=== PATIENT | female | born 1995 | race Caucasian/White ===

== ENCOUNTER 2017-09-07 06:51 | Emergency (ER) | END 2017-09-07 08:55 | disposition home or self-care (01) ==

== ENCOUNTER 2019-02-11 12:20 | Emergency (ER) | payer BC, MEDICAID ==
[~2019-02-11] VITALS: Ht 165.1 cm; Wt 105.0 kg
[~2019-02-11 12:20] MED LIST: ACET325T33 PO; IBUP800T48 PO
[2019-02-11 12:31] VITALS: BP 136/81; PULSE 86; RESP 19; Ht 165.1 cm; Wt 105.0 kg
[2019-02-11] MEDS ORDERED: NAPR-985 PO (12:59)
--- NOTE | 2019-02-11 13:07 | ERD ---
ER Documentation Chief Complaint Chief Complaint THROAT PAIN HPI 23-year-old female presenting with a sore throat. Patient was brushing her teeth earlier today and noted some white stuff on her left tonsil. She denies any fevers and took Tylenol yesterday. No runny nose or cough. Denies medical problems. NKDA. Surgical history denies. Social history denies ROS All systems reviewed and are negative except as per history of present illness. Medications Home Meds Active Scripts Naproxen* (Naprosyn*) 500 Mg Tablet, 500 MG PO BID PRN for PAIN AND/OR INFLAMMATION, #30 TAB Prov:HUMZA GUTIERREZ PA-C 02/11/19 Ibuprofen* (Motrin*) 800 Mg Tab, 800 MG PO Q6, #30 TAB Prov:HUMZA GUTIERREZ PA-C 09/07/17 Acetaminophen* (Tylenol*) 325 Mg Tablet, 2 TAB PO Q6 PRN for PAIN AND OR ELEVATED TEMP, #20 TAB Prov:HUMZA GUTIERREZ PA-C 09/07/17 Allergies Allergies: Coded Allergies: No Known Allergy (Unverified , 09/07/17) PMhx/Soc Medical and Surgical Hx: pt denies Medical Hx, pt denies Surgical Hx Hx Alcohol Use: No Hx Substance Use: No Hx Tobacco Use: No Smoking Status: Never smoker FmHx Family History: No diabetes, No coronary disease, No other Physical Exam Vitals Vital Signs Date Temp Pulse Resp B/P (MAP) Pulse Ox O2 O2 Flow FiO2 Time Delivery Rate 02/11/19 99.9 86 19 136/81 97 12:31 (99) Physical Exam GENERAL: The patient is well-appearing, well-nourished, in no acute distress HEENT: Atraumatic. Conjunctivae are pink. Pupils equal, round, and reactive to light. There is no scleral icterus. Tympanic membranes clear bilaterally. Oropharynx positive for to tonsils on the left tonsil. No exudate NECK: C-spine is soft and supple. There is no meningismus. There is no cervical lymphadenopathy. CHEST: Clear to auscultation bilaterally. There are no rales, wheezes or rhonchi. HEART: Regular rate and rhythm. No murmurs, clicks, rubs or gallops. Procedures/MDM MDM: 23-year-old female presenting with findings consistent with tonsillitis. I have low suspicion for retropharyngeal abscess. Patient does not have findings consistent with strep throat. Patient is discharged with strict ER precautions and told to follow-up with primary care within 1 to 2 days for close evaluation. Patient is told symptoms change or worsen to return immediately to the ER. All questions answered at discharge Departure Diagnosis: Primary Impression: Tonsil stone Condition: Stable Patient Instructions: Self-Care for Sore Throats Referrals: [facility] YOU HAVE RECEIVED A MEDICAL SCREENING EXAM AND THE RESULTS INDICATE THAT YOU DO NOT HAVE A CONDITION THAT REQUIRES URGENT TREATMENT IN THE EMERGENCY DEPARTMENT. FURTHER EVALUATION AND TREATMENT OF YOUR CONDITION CAN WAIT UNTIL YOU ARE SEEN IN YOUR DOCTORS OFFICE WITHIN THE NEXT 1-2 DAYS. IT IS YOUR RESPONSIBILITY TO MAKE AN APPOINTMENT FOR FOLOW-UP CARE. IF YOU HAVE A PRIMARY DOCTOR --you should call your primary doctor and schedule an appointment IF YOU DO NOT HAVE A PRIMARY DOCTOR YOU CAN CALL OUR PHYSICIAN REFERRAL HOTLINE AT IF YOU CAN NOT AFFORD TO SEE A PHYSICIAN YOU CAN CHOSE FROM THE FOLLOWING [facility] [id number] [facility] [address] [facility]. [facility] [address] [facility] [facility] [address] [facility] [facility] [address] [facility]. [facility] [address] [facility]. [facility]. [address] Additional Instructions: FOLLOW UP WITH YOUR PRIMARY CARE PHYSICIAN TOMORROW.Return to this facility if you are not improving as expected. HUMZA GUTIERREZ PA-C Feb 11, 2019 13:07
== END 2019-02-11 13:38 | disposition home or self-care (01) ==
LOC: FTE 12:20
DX: J35.8 Other chronic diseases of tonsils and adenoids (principal)
CPT/HCPCS: 99282